=== PATIENT | male | born 1950 | race Caucasian/White ===

== ENCOUNTER 2018-07-17 10:18 | Emergency (ER) | payer MEDICARE ==
[2018-07-17] MEDS ORDERED: Lidocaine 1% (PF) 30 ML VIAL ONE (10:31)
[2018-07-17] MEDS ORDERED: Adacel (T-DAP) 0.5 ML VIAL ONE (11:06)
== END 2018-07-17 11:15 | disposition home or self-care (01) ==
LOC: NAV ERS 10:18
DX: S61.012A Laceration without foreign body of left thumb without damage to nail, initial encounter (principal); S61.212A Laceration without foreign body of right middle finger without damage to nail, initial encounter; I10 Essential (primary) hypertension; F41.9 Anxiety disorder, unspecified; Z87.891 Personal history of nicotine dependence; Z79.899 Other long term (current) drug therapy; W26.0XXA Contact with knife, initial encounter
CPT/HCPCS: 12001; 90471; 90715; J2001